=== PATIENT | female | born 1960 | race Hispanic/Latino ===

== ENCOUNTER 2023-07-23 18:44 | Emergency (ER) | payer MEDICARE ==
[2023-07-23 19:01] VITALS: BP 136/73; PULSE 85; RESP 16; TEMP 99.3; O2SAT 100
[2023-07-23] MEDS ORDERED: PREDNISONE ONE (19:17)
[2023-07-23] MEDS ORDERED: BENADRYL PO ONE (19:17)
[2023-07-23] MEDS ORDERED: ROCEPHIN ONE (19:17)
[2023-07-23] MEDS ORDERED: LIDOCAINE 1% VIAL ONE (19:17)
[2023-07-23] MEDS: ROCEPHIN IM STA (19:27)
[2023-07-23] MEDS: BENADRYL PO STA (19:27)
[2023-07-23] MEDS: PREDNISONE PO STA (19:28)
[2023-07-23 19:30] VITALS: BP 153/88; PULSE 78; RESP 16; TEMP 99.3; O2SAT 98
== END 2023-07-23 19:30 | disposition home or self-care (01) ==
LOC: ER 18:44
DX: S70.361A Insect bite (nonvenomous), right thigh, initial encounter (principal); L08.9 Local infection of the skin and subcutaneous tissue, unspecified; Z90.49 Acquired absence of other specified parts of digestive tract; W57.XXXA Bitten or stung by nonvenomous insect and other nonvenomous arthropods, initial encounter; Y93.89 Activity, other specified; Y92.89 Other specified places as the place of occurrence of the external cause; Y99.8 Other external cause status
CPT/HCPCS: 99283; 96372; Q0163; J2001; J0696; J7512